=== PATIENT | female | born 1985 | race Caucasian/White ===

== ENCOUNTER 2018-02-16 08:38 | Emergency (ER) | payer OTHER ==
[2018-02-16 08:47] VITALS: TEMP 98.3
[2018-02-16] MEDS ORDERED: SODIUM CHLORIDE 0.9% 1,000 ML IV STA (09:00)
--- NOTE | 2018-02-16 09:04 | ED ---
Dizziness HPI - General Chief Complaint: Syncope Stated Complaint: Syncope 13 weeks Time Seen by Provider: 02/16/18 08:51 Source: patient, RN notes reviewed, old records reviewed Mode of arrival: ambulatory Limitations: no limitations - History of Present Illness Initial Comments: this patient is a 32-year-old female presents emergency department today after a syncopal episode. She reports that at 6:30 this morning she was in the shower and started to feel hot like she was about to faint. She states that she opened a window to get some air and then the next thing she remembers she was on the ground and her toe. Patient reports she is 13 weeks . Patient states that she had a history of single episode that she was younger in the past. She states that prior to this episode she had no chest pain or shortness of breath. She otherwise has been feeling well with this slightly nauseated. She states that when she fell she does have a small pain in the right posterior aspect of her head. She states that she was likely unconscious for 1-2 minutes or less. Patient relates that she had this time has no major complaints no abdominal pain or cramping. No chest pain or shortness of breath. She is complaining of a minor headache. She has been getting headaches throughout this . Patient's reports that she 's otherwise been acting normal and well since the fall. - Related Data Home Medications Medication Instructions Recorded Confirmed Ascorbic Acid [Vitamin C] 1,000 mg PO DAILY 02/16/18 02/16/18 Led-Poho-Ximbz Acid 1 cap PO DAILY 02/16/18 02/16/18 [-U Capsule (formulary)] Vitamin B Complex 1 cap PO DAILY 02/16/18 02/16/18 Allergies Allergy/AdvReac Type Severity Reaction Status Date / Time No Known Allergies Allergy Verified 02/16/18 09:16 Review of Systems ROS Statement: Those systems with pertinent positive or pertinent negative responses have been documented in the HPI. ROS Other: All systems not noted in ROS Statement are negative. Past Medical History Additional Past Medical History / Comment(s): syncopal episodes History of Any Multi-Drug Resistant Organisms: None Reported Past Surgical History: No Surgical Hx Reported Past Psychological History: No Psychological Hx Reported Smoking Status: Never smoker Past Alcohol Use History: None Reported Past Drug Use History: None Reported General Exam - General Exam Comments Initial Comments: 32-year-old female who is 13 weeks . Alert and oriented. No acute distress. Limitations: no limitations General appearance: alert, in no apparent distress Head exam: Present: atraumatic, normocephalic, normal inspection Eye exam: Present: normal appearance, PERRL, EOMI. Absent: scleral icterus, conjunctival injection, periorbital swelling ENT exam: Present: normal exam, normal oropharynx, mucous membranes moist Neck exam: Present: normal inspection. Absent: tenderness, meningismus, lymphadenopathy Respiratory exam: Present: normal lung sounds bilaterally. Absent: respiratory distress, wheezes, rales, rhonchi, stridor Cardiovascular Exam: Present: regular rate, normal rhythm, normal heart sounds. Absent: systolic murmur, diastolic murmur, rubs, gallop, clicks GI/Abdominal exam: Present: soft, normal bowel sounds. Absent: distended, tenderness, guarding, rebound, rigid Extremities exam: Present: normal inspection, full ROM, normal capillary refill. Absent: tenderness, pedal edema, joint swelling, calf tenderness Back exam: Present: normal inspection Neurological exam: Present: alert, oriented X3, CN II-XII intact Expanded Patient oriented to: Present: person, place, time Speech: Present: fluid speech Cranial nerves: EOM's Intact: Normal Cerebellar function: Finger to Nose: Normal Upper motor neuron: Pronator Drift: Normal Sensory exam: Upper Extremity Light Touch: Normal, Lower Extremity Light Touch: Normal Motor strength exam: RUE: 5, LUE: 5, RLE: 5, LLE: 5 Eye Response: (4) open spontaneously Motor Response: (6) obeys commands Verbal Response: (5) oriented [place] Total: 15 Psychiatric exam: Present: normal affect, normal mood Skin exam: Present: warm, dry, intact, normal color. Absent: rash Course Vital Signs 02/16/18 02/16/18 08:43 10:30 Temperature 98.3 F Pulse Rate 83 80 Respiratory 18 16 Rate Blood Pressure 131/72 131/59 O2 Sat by Pulse 100 99 Oximetry Medical Decision Making - Medical Decision Making 32-year-old female is 13 weeks presents after single episode. This time she reports a mild headache. She did hit her head on the phone was unconscious for approximately minute. I discussed doing a computed tomography scan she states to like to forego the computed tomography scan due to exposure of radiation. She is otherwise been alert and oriented and GCS of 15. No neurological deficits. This and will evaluate for possible cardiac syncope including cardiac workup. She has no chest pain or shortness breath or any other complaints at this time. Also ultrasound the baby. Ultrasound shows a viable 13 week with a heart rate of 135. Also a small subchorionic bleed 2.2 cm. She has no bleeding at this time. informed of this. Patient's labwork and EKG reviewed and normal. She did elect to forego the computed tomography scan. I discussed head injury instructions. Discussed measures remains hydrated. QUESTIONS answered and return parameters were discussed. She reports she feels well and states she would like to go home. - Lab Data Result diagrams: 02/16/18 09:30 02/16/18 09:30 Lab Results 02/16/18 02/16/18 02/16/18 Range/Units 09:08 09:30 09:30 WBC 8.8 (3.8-10.6) k/uL RBC 4.72 (3.80-5.40) m/uL Hgb 13.1 (11.4-16.0) gm/dL Hct 39.2 (34.0-46.0) % MCV 83.0 (80.0-100.0) fL MCH 27.7 (25.0-35.0) pg MCHC 33.3 (31.0-37.0) g/dL RDW 12.4 (11.5-15.5) % Plt Count 168 (150-450) k/uL Neutrophils % 82 % Lymphocytes % 12 % Monocytes % 4 % Eosinophils % 1 % Basophils % 0 % Neutrophils # 7.3 (1.3-7.7) k/uL Lymphocytes # 1.1 (1.0-4.8) k/uL Monocytes # 0.3 (0-1.0) k/uL Eosinophils # 0.0 (0-0.7) k/uL Basophils # 0.0 (0-0.2) k/uL PT (9.0-12.0) sec INR (<1.2) APTT (22.0-30.0) sec Sodium (137-145) mmol/L Potassium (3.5-5.1) mmol/L Chloride (98-107) mmol/L Carbon Dioxide (22-30) mmol/L Anion Gap mmol/L BUN (7-17) mg/dL Creatinine (0.52-1.04) mg/dL Est GFR (CKD-EPI)AfAm (>60 ml/min/1.73 sqM) Est GFR (CKD-EPI)NonAf (>60 ml/min/1.73 sqM) Glucose (74-99) mg/dL POC Glucose (mg/dL) 75 (75-99) mg/dL POC Glu Stave Machine Tender ID Calcium (8.4-10.2) mg/dL Total Bilirubin (0.2-1.3) mg/dL AST (14-36) U/L ALT (9-52) U/L Alkaline Phosphatase (38-126) U/L Total Creatine Kinase 31 (30-135) U/L CK-MB (CK-2) <0.2 (0.0-2.4) ng/mL CK-MB (CK-2) Rel Index Troponin I <0.012 (0.000-0.034) ng/mL Total Protein (6.3-8.2) g/dL Albumin (3.5-5.0) g/dL Urine Color Urine Appearance (Clear) Urine pH (5.0-8.0) Ur Specific [place] (1.001-1.035) Urine Protein (Negative) Urine Glucose (UA) (Negative) Urine Ketones (Negative) Urine Blood (Negative) Urine Nitrite (Negative) Urine Bilirubin (Negative) Urine Urobilinogen (<2.0) mg/dL Ur Leukocyte Esterase (Negative) Urine RBC (0-5) /hpf Urine WBC (0-5) /hpf Ur Squamous Epith Cells (0-4) /hpf Urine Mucus (None) /hpf 02/16/18 02/16/18 02/16/18 Range/Units 09:30 09:30 09:30 WBC (3.8-10.6) k/uL RBC (3.80-5.40) m/uL Hgb (11.4-16.0) gm/dL Hct (34.0-46.0) % MCV (80.0-100.0) fL MCH (25.0-35.0) pg MCHC (31.0-37.0) g/dL RDW (11.5-15.5) % Plt Count (150-450) k/uL Neutrophils % % Lymphocytes % % Monocytes % % Eosinophils % % Basophils % % Neutrophils # (1.3-7.7) k/uL Lymphocytes # (1.0-4.8) k/uL Monocytes # (0-1.0) k/uL Eosinophils # (0-0.7) k/uL Basophils # (0-0.2) k/uL PT 9.7 (9.0-12.0) sec INR 1.0 (<1.2) APTT 23.2 (22.0-30.0) sec Sodium 137 (137-145) mmol/L Potassium 3.9 (3.5-5.1) mmol/L Chloride 103 (98-107) mmol/L Carbon Dioxide 21 L (22-30) mmol/L Anion Gap 13 mmol/L BUN 10 (7-17) mg/dL Creatinine 0.48 L (0.52-1.04) mg/dL Est GFR (CKD-EPI)AfAm >90 (>60 ml/min/1.73 sqM) Est GFR (CKD-EPI)NonAf >90 (>60 ml/min/1.73 sqM) Glucose 78 (74-99) mg/dL POC Glucose (mg/dL) (75-99) mg/dL POC Glu Stave Machine Tender ID Calcium 9.4 (8.4-10.2) mg/dL Total Bilirubin 0.3 (0.2-1.3) mg/dL AST 14 (14-36) U/L ALT 18 (9-52) U/L Alkaline Phosphatase 65 (38-126) U/L Total Creatine Kinase (30-135) U/L CK-MB (CK-2) (0.0-2.4) ng/mL CK-MB (CK-2) Rel Index Troponin I (0.000-0.034) ng/mL Total Protein 6.7 (6.3-8.2) g/dL Albumin 3.9 (3.5-5.0) g/dL Urine Color Yellow Urine Appearance Cloudy H (Clear) Urine pH 7.5 (5.0-8.0) Ur Specific [place] 1.023 (1.001-1.035) Urine Protein Trace H (Negative) Urine Glucose (UA) Negative (Negative) Urine Ketones 1+ H (Negative) Urine Blood Negative (Negative) Urine Nitrite Negative (Negative) Urine Bilirubin Negative (Negative) Urine Urobilinogen <2.0 (<2.0) mg/dL Ur Leukocyte Esterase Negative (Negative) Urine RBC <1 (0-5) /hpf Urine WBC 2 (0-5) /hpf Ur Squamous Epith Cells 2 (0-4) /hpf Urine Mucus Rare H (None) /hpf 02/16/18 10:06 EKG shows normal sinus rhythm. Possible left atrial enlargement. Borderline EKG noted. Ventricular rate of 85 beats were minute. KS interval is 144 milliseconds. QRS ration 82 ms. QT QTC 370/440 ms. No evidence of ST elevation or T-wave inversion. No speech or ventricular arrhythmias. - Radiology Data Radiology results: report reviewed Ultrasound shows viable IUP measuring 13 weeks. Heart rate of 155. Estimated delivery date of 08/24/2028. Findings are suggestive of a 2.2 subchorionic hemorrhage. Disposition Clinical Impression: Syncope, 13 weeks gestation of Disposition: HOME SELF-CARE Condition: Good Instructions: Syncope (ED) Additional Instructions: Make sure the remaining hydrated. Small frequent next. Follow-up with primary care provider. Return to the emergency department if any alarming signs or symptoms occur. Referrals: Jae Bauman MD [Primary Care Provider] - 1-2 days Time of Disposition: 11:18
[2018-02-16 09:32] LABS: Glucose,Whole Blood 75 mg/dL (75-99)
[2018-02-16 09:49] LABS: Basophils % (A) 0 %; Eosinophils % (A) 1 %; HCT 39.2 % (34.0-46.0); HGB 13.1 gm/dL (11.4-16.0); Lymphocytes # (A) 1.1 k/uL (1.0-4.8); Lymphocytes % (A) 12 %; MCH 27.7 pg (25.0-35.0); MCHC 33.3 g/dL (31.0-37.0); Mean Platelet Volume 8.4; Monocytes # (A) 0.3 k/uL (0-1.0); Monocytes % (A) 4 %; Neutrophils # (A) 7.3 k/uL (1.3-7.7); Neutrophils % (A) 82 %; Platelet Count 168 k/uL (150-450); RBC 4.72 m/uL (3.80-5.40); RDW 12.4 % (11.5-15.5); WBC 8.8 k/uL (3.8-10.6)
[2018-02-16 09:52] LABS: Appearance,Urine Cloudy (Clear); Bilirubin,Urine Negative (Negative); Blood,Urine Negative (Negative); Color,Urine Yellow; Glucose,Urine (UA) Negative (Negative); Ketones,Urine 1+ (Negative); Leukocyte Esterase,Urine Negative (Negative); Mucus,Urine Rare /hpf; Nitrite,Urine Negative (Negative); PH, Urine 7.5 (5.0-8.0); Protein,Urine Trace (Negative); RBC,Urine <1 /hpf (0-5); Specific Gravity,Urine 1.023 (1.001-1.035); Squamous Epithelial Cell,Urine 2 /hpf (0-4); Urobilinogen,Urine <2.0 mg/dL (<2.0); WBC,Urine 2 /hpf (0-5)
[2018-02-16 09:58] LABS: Partial Thromboplastin Time 23.2 sec (22.0-30.0); Prothrombin Time 9.7 sec (9.0-12.0)
[2018-02-16 10:02] LABS: ALT 18 U/L (9-52); AST 14 U/L (14-36); Albumin 3.9 g/dL (3.5-5.0); Alkaline Phosphatase 65 U/L (38-126); Anion Gap 13 mmol/L; Blood Urea Nitrogen 10 mg/dL (7-17); Calcium 9.4 mg/dL (8.4-10.2); Carbon Dioxide 21 mmol/L (22-30); Chloride 103 mmol/L (98-107); Glucose 78 mg/dL (74-99); Sodium 137 mmol/L (137-145); Total Bilirubin 0.3 mg/dL (0.2-1.3); Total Protein 6.7 g/dL (6.3-8.2)
[2018-02-16] MEDS ORDERED: ACETAMINOPHEN TAB 500 MG TAB PO STA (10:07)
[2018-02-16 10:12] LABS: Creatine Kinase 31 U/L (30-135)
[2018-02-16 10:14] LABS: Potassium 3.9 mmol/L (3.5-5.1)
--- NOTE | 2018-02-16 10:19 | US ---
EXAMINATION TYPE: Transabdominal DATE OF EXAM: 02/16/18 COMPARISON: 10/21/2016 CLINICAL HISTORY: Pain. Syncope, patient fell in shower today and hit her head, patient states no pel jeanmarie pain and bleeding, 2, para 1. EXAM PERFORMED: Transabdominal (TA) EXAM MEASUREMENTS: GESTATIONAL AGE / DATING Physician Established: (12 weeks/6 days) EDC: 08/25/2018 Dates by LMP: (12 weeks/6 days) EDC: 08/25/2018 Dates by First Scan: No previous here Dates by Current Scan for: (13 weeks/0 days) EDC: 08/24/2018 MATERNAL ANATOMY Uterus: 15.4 x 6.0 x 8.7cm, anteverted Right Ovary: 3.5 x 1.5 x 2.5cm Left Ovary: 4.2 x 2.2 x 3.0cm Post CDS / Adnexa: wnl Presence of free fluid: no Presence of corpus luteal cyst: left ovary: 2.2 x 1.7 x 1.7cm complex area, possible corpus luteum Presence of subchorionic bleed: 2.0 x 1.2 x 2.2cm hypoechoic area inferior to gestational sac, possib le bleed GESTATION / SURVEY CRL: 6.7cm (13 weeks/0 days) Yolk Sac (normal less than 6mm): not seen at this time Heart Rate: 155 bpm Rhythm: Normal IUP: Viable IUP Nuchal Translucency 10-14wks (normal less than 3mm): 1.8mm Date of LMP: 11/18/2017 Beta HcG (if available): Not available at time of exam Viable single IUP measuring 13 weeks 0 days with a heart rate of 155bpm and an estimated delivery silverio e of 08/24/2018, 2.2cm hypoechoic area inferior to gestational sac, suggestive of subchorionic hemorr montez. IMPRESSION: Viable single IUP measuring 13 weeks 0 days with a heart rate of 155bpm and an estimated delivery silverio e of 08/24/2018. Findings are suggestive of a 2.2 cm subchorionic hemorrhage.
[2018-02-16 10:26] LABS: Creatine Kinase MB <0.2 ng/mL (0.0-2.4); Troponin I <0.012 ng/mL (0.000-0.034)
[2018-02-16 11:30] VITALS: BP 116/66; PULSE 96; RESP 20
== END 2018-02-16 11:30 | disposition home or self-care (01) ==
LOC: EC 08:38
DX: O99.89 Other specified diseases and conditions complicating pregnancy, childbirth and the puerperium (principal); R51 Headache; R42 Dizziness and giddiness; O20.8 Other hemorrhage in early pregnancy; R11.0 Nausea; Z3A.13 13 weeks gestation of pregnancy; Z79.899 Other long term (current) drug therapy; W18.00XA Striking against unspecified object with subsequent fall, initial encounter; Y93.E1 Activity, personal bathing and showering
CPT/HCPCS: 36415; 76801; 76813; 80053; 81001; 82550; 82553; 84484; 85025; 85610; 85730; 93005; 96360; 99285

== ENCOUNTER 2018-03-10 21:42 | Emergency (ER) | payer OTHER ==
[2018-03-10] MEDS ORDERED: SODIUM CHLORIDE 0.9% 1,000 ML IV STA ×2 (22:31)
--- NOTE | 2018-03-10 22:32 | ED ---
General Adult HPI - General Chief complaint: Nausea/Vomiting/Diarrhea Stated complaint: vomiting/16 wks preg Time Seen by Provider: 03/10/18 22:17 Source: patient, RN notes reviewed Mode of arrival: ambulatory Limitations: no limitations - History of Present Illness Initial comments: Patient 32-year-old female who is G2, P1, 16 weeks by ultrasound, presenting with nausea vomiting that started yesterday afternoon. Patient states that she's had increased nausea vomiting no sign of blood. Unable to keep anything down. Patient states feeling a little bit better at this time is still nauseous. Does admit some cramping type abdominal pain left side. Denies any vaginal bleeding or discharge. Denies any other complaints or symptoms. Patient denies any recent fever, chills, shortness of breath, chest pain, back pain, numbness or tingling, dysuria or hematuria, constipation or diarrhea, headaches or visual changes, or any other complaints. - Related Data Home Medications Medication Instructions Recorded Confirmed Ascorbic Acid [Vitamin C] 1,000 mg PO DAILY 02/16/18 03/10/18 Ngl-Ybqw-Afzwp Acid 1 cap PO DAILY 02/16/18 03/10/18 [-U Capsule (formulary)] Vitamin B Complex 1 cap PO DAILY 02/16/18 03/10/18 Allergies Allergy/AdvReac Type Severity Reaction Status Date / Time No Known Allergies Allergy Verified 03/10/18 22:22 Review of Systems ROS Statement: Those systems with pertinent positive or pertinent negative responses have been documented in the HPI. ROS Other: All systems not noted in ROS Statement are negative. Past Medical History Additional Past Medical History / Comment(s): syncopal episodes History of Any Multi-Drug Resistant Organisms: None Reported Past Surgical History: No Surgical Hx Reported Past Psychological History: No Psychological Hx Reported Smoking Status: Never smoker Past Alcohol Use History: None Reported Past Drug Use History: None Reported General Exam - General Exam Comments Initial Comments: General: The patient is awake and alert, in no distress, and does not appear acutely ill. Eye: Pupils are equal, round and reactive to light, extra-ocular movements are intact. No nystagmus. There is normal conjunctiva bilaterally. No signs of icterus. Ears, nose, mouth and throat: There are moist mucous membranes and no oral lesions. Neck: The neck is supple, there is no tenderness or JVD. Cardiovascular: There is a regular rate and rhythm. No murmur, rub or gallop is appreciated. Respiratory: Lungs are clear to auscultation, respirations are non-labored, breath sounds are equal. No wheezes, stridor, rales, or rhonchi. Gastrointestinal: Soft, non-distended, non-tender abdomen without masses or organomegaly noted. There is no rebound or guarding present. No CVA tenderness. Musculoskeletal: Normal ROM, no tenderness. Strength 5/5. Sensation intact. Pulses equal bilaterally 2+. Neurological: A&O x 3. CN II-XII intact, There are no obvious motor or sensory deficits. Coordination appears grossly intact. Speech is normal. Skin: Skin is warm and dry and no rashes or lesions are noted. Psychiatric: Cooperative, appropriate mood & affect, normal judgment. Limitations: no limitations Course Vital Signs 03/10/18 03/10/18 22:02 23:45 Temperature 97.8 F 97.9 F Pulse Rate 62 81 Respiratory 20 18 Rate Blood Pressure 120/72 112/62 O2 Sat by Pulse 98 96 Oximetry Medical Decision Making - Medical Decision Making Patient reexamined at this time shows no signs of distress. Patient no nausea vomiting here the emergency room is feeling better. Patient was offered nausea medication along with Tylenol for abdominal cramping. She has declined. Patient 16 weeks by ultrasound patient denies any bleeding or discharge. At this time patient's doing well improved will be discharged home advised follow-up the AUDITING CONTROL CLERK over the next 2 days. - Lab Data Result diagrams: 03/10/18 22:19 03/10/18 22:19 Lab Results 03/10/18 03/10/18 03/10/18 Range/Units 22:19 22:19 23:15 WBC 9.3 (3.8-10.6) k/uL RBC 4.65 (3.80-5.40) m/uL Hgb 12.7 (11.4-16.0) gm/dL Hct 37.7 (34.0-46.0) % MCV 81.2 (80.0-100.0) fL MCH 27.3 (25.0-35.0) pg MCHC 33.7 (31.0-37.0) g/dL RDW 12.9 (11.5-15.5) % Plt Count 194 (150-450) k/uL Neutrophils % 78 % Lymphocytes % 15 % Monocytes % 5 % Eosinophils % 2 % Basophils % 0 % Neutrophils # 7.2 (1.3-7.7) k/uL Lymphocytes # 1.4 (1.0-4.8) k/uL Monocytes # 0.5 (0-1.0) k/uL Eosinophils # 0.1 (0-0.7) k/uL Basophils # 0.0 (0-0.2) k/uL Sodium 137 (137-145) mmol/L Potassium 3.9 (3.5-5.1) mmol/L Chloride 105 (98-107) mmol/L Carbon Dioxide 21 L (22-30) mmol/L Anion Gap 11 mmol/L BUN 8 (7-17) mg/dL Creatinine 0.50 L (0.52-1.04) mg/dL Est GFR (CKD-EPI)AfAm >90 (>60 ml/min/1.73 sqM) Est GFR (CKD-EPI)NonAf >90 (>60 ml/min/1.73 sqM) Glucose 86 (74-99) mg/dL Calcium 9.4 (8.4-10.2) mg/dL Total Bilirubin 0.2 (0.2-1.3) mg/dL AST 22 (14-36) U/L ALT 26 (9-52) U/L Alkaline Phosphatase 77 (38-126) U/L Total Protein 6.3 (6.3-8.2) g/dL Albumin 3.7 (3.5-5.0) g/dL Urine Color Yellow Urine Appearance Clear (Clear) Urine pH 5.5 (5.0-8.0) Ur Specific [place] 1.014 (1.001-1.035) Urine Protein Negative (Negative) Urine Glucose (UA) Negative (Negative) Urine Ketones 2+ H (Negative) Urine Blood Negative (Negative) Urine Nitrite Negative (Negative) Urine Bilirubin Negative (Negative) Urine Urobilinogen <2.0 (<2.0) mg/dL Ur Leukocyte Esterase Negative (Negative) Disposition Clinical Impression: Hyperemesis gravidarum Disposition: HOME SELF-CARE Condition: Good Instructions: Hyperemesis Gravidarum (ED) Additional Instructions: Please use medication as discussed. Please follow-up with AUDITING CONTROL CLERK in the next 1- 2 days. Please return to emergency room if the symptoms increase or worsen or for any other concerns. Is patient prescribed a controlled substance at d/c from ED?: No Referrals: Jae Bauman MD [Primary Care Provider] - 1-2 days Time of Disposition: 00:03
[2018-03-10 22:40] LABS: Basophils % (A) 0 %; Eosinophils # (A) 0.1 k/uL (0-0.7); Eosinophils % (A) 2 %; HCT 37.7 % (34.0-46.0); HGB 12.7 gm/dL (11.4-16.0); Lymphocytes # (A) 1.4 k/uL (1.0-4.8); Lymphocytes % (A) 15 %; MCH 27.3 pg (25.0-35.0); MCHC 33.7 g/dL (31.0-37.0); MCV 81.2 fL (80.0-100.0); Mean Platelet Volume 8.8; Monocytes # (A) 0.5 k/uL (0-1.0); Monocytes % (A) 5 %; Neutrophils # (A) 7.2 k/uL (1.3-7.7); Neutrophils % (A) 78 %; Platelet Count 194 k/uL (150-450); RBC 4.65 m/uL (3.80-5.40); RDW 12.9 % (11.5-15.5); WBC 9.3 k/uL (3.8-10.6)
[2018-03-10 22:50] LABS: ALT 26 U/L (9-52); AST 22 U/L (14-36); Albumin 3.7 g/dL (3.5-5.0); Alkaline Phosphatase 77 U/L (38-126); Anion Gap 11 mmol/L; Blood Urea Nitrogen 8 mg/dL (7-17); Calcium 9.4 mg/dL (8.4-10.2); Carbon Dioxide 21 mmol/L (22-30); Chloride 105 mmol/L (98-107); Glucose 86 mg/dL (74-99); Potassium 3.9 mmol/L (3.5-5.1); Sodium 137 mmol/L (137-145); Total Bilirubin 0.2 mg/dL (0.2-1.3); Total Protein 6.3 g/dL (6.3-8.2)
[2018-03-10 23:27] LABS: Appearance,Urine Clear (Clear); Bilirubin,Urine Negative (Negative); Blood,Urine Negative (Negative); Color,Urine Yellow; Glucose,Urine (UA) Negative (Negative); Ketones,Urine 2+ (Negative); Leukocyte Esterase,Urine Negative (Negative); Nitrite,Urine Negative (Negative); PH, Urine 5.5 (5.0-8.0); Protein,Urine Negative (Negative); Specific Gravity,Urine 1.014 (1.001-1.035); Urobilinogen,Urine <2.0 mg/dL (<2.0)
[2018-03-10 23:45] VITALS: BP 112/62; PULSE 81; RESP 18; TEMP 97.9
== END 2018-03-11 00:09 | disposition home or self-care (01) ==
LOC: EC 21:42
DX: O21.0 Mild hyperemesis gravidarum (principal); O26.892 Other specified pregnancy related conditions, second trimester; R10.9 Unspecified abdominal pain; Z3A.16 16 weeks gestation of pregnancy; Z79.899 Other long term (current) drug therapy
CPT/HCPCS: 36415; 80053; 81003; 85025; 96360; 99284

== ENCOUNTER → 2019-04-28 | Outpatient (CLI) | payer OTHER ==
--- NOTE | 2019-04-28 14:01 | US ---
EXAMINATION TYPE: US OB<=14wk fetus twins/travag DATE OF EXAM: 04/28/2019 COMPARISON: NONE CLINICAL HISTORY: Dates and viability-twin gestation. EXAM PERFORMED: Transvaginal (TV) and Transabdominal (TA) EXAM MEASUREMENTS: GESTATIONAL AGE / DATING Physician Established: Not yet established Dates by LMP: (7 weeks/2 days) EDC: 12/13/2019 Dates by First Scan: No previous this is first scan Dates by Current Scan for Baby A: (6 weeks/0 days) EDC: 12/22/2019 Dates by Current Scan for Baby B: (6 weeks/0 days) EDC: 12/22/2019 MATERNAL ANATOMY Uterus: 9.3 x 4.0 x 4.4 cm Right Ovary: 3.8 x 3.0 x 2.1 cm Left Ovary: 2.5 x 1.6 x 1.8 cm Post CDS / Adnexa: wnl Presence of free fluid: No Presence of corpus luteal cyst: Yes, right ovary measuring 2.1 x 1.9 x 2.1 cm Presence of subchorionic bleed: Yes, measuring 1.8 x 0.8 x 1.7 cm Presence of two separate gestational sacs: Yes GESTATION / SURVEY TWIN A CRL: 0.32 cm (6wks/0days) Yolk Sac (normal less than 6mm): 3mm Heart Rate: 100 bpm Rhythm: Normal IUP: Viable IUP TWIN B CRL: 0.33 cm (6wks/0days) Yolk Sac (normal less than 6mm): 2 mm Heart Rate: 105 bpm Rhythm: Normal IUP: Viable IUP Date of LMP: 03/08/2019 Beta HcG (if available): Not available at this time Viable twin IUP with an JW of 12/22/2019. Probable subchorionic bleed visualized measuring 1.8 x 0.8 x 1.7 cm. IMPRESSION: Viable twin IUP with an JW of 12/22/2019. Probable subchorionic bleed visualized measuring 1.8 x 0.8 x 1.7 cm.
== END | disposition home or self-care (01) ==
LOC: RADUSWWP 12:59
PROVIDERS: ATTEND Obstetrics & Gynecology
DX: O30.001 Twin pregnancy, unspecified number of placenta and unspecified number of amniotic sacs, first trimester (principal); Z3A.01 Less than 8 weeks gestation of pregnancy
CPT/HCPCS: 76801; 76802; 76817

== ENCOUNTER → 2021-03-21 | Outpatient (CLI) | payer OTHER ==
[2021-03-21 23:39] LABS: Basophils # (A) 0.02 X 10*3/uL (0.00-0.10); Basophils % (A) 0.3 %; Eosinophils # (A) 0.07 X 10*3/uL (0.04-0.35); HCT 39.2 % (37.2-46.3); HGB 12.3 g/dL (12.0-15.0); Lymphocytes % (A) 16.6 %; MCH 26.3 pg (27.0-32.0); MCHC 31.4 g/dL (32.0-37.0); MCV 83.9 fL (80.0-97.0); Mean Platelet Volume 12.1 fL (9.5-12.2); Monocytes # (A) 0.41 X 10*3/uL (0.20-1.00); Monocytes % (A) 5.7 %; Neutrophils % (A) 76.1 %; Platelet Count 192 X 10*3/uL (140-440); RBC 4.67 X 10*6/uL (4.10-5.20); RDW 14.4 % (11.5-14.5); WBC 7.22 X 10*3/uL (4.50-10.00)
[2021-03-22 03:39] LABS: ALT 15 U/L (8-44); AST 17 U/L (13-35); African American GFR (CKD) 137.8 (60.0-200.0); Albumin/Globulin Ratio 1.81 (1.60-3.17); Alkaline Phosphatase 89 U/L (41-126); BUN/Creat Ratio 16.67 Ratio (12.00-20.00); Calcium 8.7 mg/dL (8.7-10.3); Carbon Dioxide 23.3 mmol/L (21.6-31.8); Chloride 108 mmol/L (96-109); Globulin 2.1 g/dL (1.6-3.3); Glucose 78 mg/dL (70-110); Non-African American GFR(CKD) 118.9 (60.0-200.0); Potassium 4.5 mmol/L (3.5-5.5); Sodium 138 mmol/L (135-145); Total Bilirubin 0.5 mg/dL (0.2-1.2); Total Protein 5.9 g/dL (6.2-8.2)
== END | disposition home or self-care (01) ==
LOC: LABWHC1 09:03
PROVIDERS: ATTEND Internal Medicine Endocrinology, Diabetes & Metabolism
DX: E05.00 Thyrotoxicosis with diffuse goiter without thyrotoxic crisis or storm (principal)
CPT/HCPCS: 36415; 80053; 84439; 84443; 84481; 85025

== ENCOUNTER → 2021-03-26 | Outpatient (CLI) | payer OTHER ==
--- NOTE | 2021-03-27 09:32 | US ---
EXAMINATION TYPE: US thyroid st tissue head/neck DATE OF EXAM: 03/26/2021 COMPARISON: NONE CLINICAL HISTORY: E05.90 Hyperthyroidism. Patient stated is 23 weeks GLAND SIZE: Right Lobe: 4.7 x 2.0 x 1.8 cm Overall Parenchyma: homogenous Left Lobe: 4.7 x 1.9 x 1.4 cm Overall Parenchyma: homogeneous Isthmus Thickness: 0.3 cm NODULES RIGHT: # of nodules measured on right: 3 largest of multiple are reported 1. 1.2 X 1.0 x 0.6 cm, upper pole, mixed cystic and solid, hypoechoic nodule, which is wider than t all, with smooth margins, without echogenic foci. 2. 1.2 X 1.0 x 0.7 cm, upper pole, mixed cystic and solid, hypoechoic nodule, which is wider than t all, with smooth margins, without echogenic foci. 3. 1.4 X 1.3 x 0.5 cm, upper pole, mixed cystic and solid, hypoechoic nodule, which is wider than t all, with smooth margins, with echogenic foci. LEFT: # of nodules measured on left: 3 largest of multiple are reported 1. 0.6 X 0.8 x 0.4 cm, mid pole, cystic or almost completely cystic, hypoechoic nodule, which is wi bairon than tall, with smooth margins, with echogenic foci. 2. 1.0 X 0.9 x 0.6 cm, mid pole, mixed cystic and solid, hypoechoic nodule, which is wider than ta ll, with smooth margins, with echogenic foci. 3. 1.0 X 0.7 x 0.4 cm, lower pole labeled #4, cystic or almost completely cystic, anechoic nodule, which is wider than tall, with ill-defined margins, without echogenic foci. ISTHMUS: # of nodules measured in the isthmus: 1 largest of couple 1. 0.8 X 0.8 x 0.5 cm cystic, anechoic nodule, which is wider than tall, with lobulated or irregula r margins, without echogenic foci. Bilateral neck scanned: superior to left thyroid a lymph node is seen = 2.6 x 1.9 x 0.6cm . IMPRESSION: Multinodular thyroid gland. Multiple mixed cystic and solid nodules are seen, one with echogenic foci in the left lobe. This is suggestive of a BI-RADS 4 nodule. Continued sonographic follow-up is recom mended. 2017 ACR TI-RADS LEVEL: 4 *Highest TI-RADS level nodule reported
== END | disposition home or self-care (01) ==
LOC: RADUSWWP 08:59
PROVIDERS: ATTEND Family Medicine
DX: E04.2 Nontoxic multinodular goiter (principal); E05.90 Thyrotoxicosis, unspecified without thyrotoxic crisis or storm; Z3A.23 23 weeks gestation of pregnancy
CPT/HCPCS: 76536

== ENCOUNTER → 2022-02-27 | Outpatient (CLI) | payer OTHER | END | disposition home or self-care (01) | LOC: LABWHC1 10:47 | PROVIDERS: ATTEND Surgery | DX: E04.2 Nontoxic multinodular goiter (principal) | CPT/HCPCS: 36415; 84436; 84439; 84443; 84480 ==

== ENCOUNTER → 2023-10-03 | Outpatient (CLI) | payer OTHER ==
[2023-10-03 16:19] LABS: Basophils # (A) 0.05 X 10*3/uL (0.00-0.10); Basophils % (A) 0.7 %; Eosinophils # (A) 0.13 X 10*3/uL (0.04-0.35); Eosinophils % (A) 1.9 %; HGB 13.9 g/dL (12.0-15.0); Lymphocytes % (A) 24.9 %; MCH 27.5 pg (27.0-32.0); MCHC 31.6 g/dL (32.0-37.0); Mean Platelet Volume 12.2 FL (9.5-12.2); Monocytes % (A) 7.3 %; NRBC Per 100 WBC 0 X 10*3/uL (0.00-0.01); Neutrophils # (A) 4.42 X 10*3/uL (1.80-7.70); Neutrophils % (A) 64.9 %; Platelet Count 186 X 10*3/uL (140-440); RBC 5.06 X 10*6/uL (4.10-5.20); RDW 12.7 % (11.5-14.5); WBC 6.82 X 10*3/uL (4.50-10.00)
[2023-10-03 16:27] LABS: Thyroid Peroxidase Antibodies <9.0 U/mL (0.0-33.0)
[2023-10-03 16:41] LABS: Chol/HDL Ratio 2.75 Ratio; Iron 63 UG/DL (50-170)
[2023-10-03 16:42] LABS: % Iron Saturation 16.07 (12.00-45.00); ALT 25 U/L (8-44); AST 22 U/L (13-35); Albumin/Globulin Ratio 2.11 Ratio (1.60-3.17); Alkaline Phosphatase 63 U/L (41-126); BUN/Creat Ratio 18.88 Ratio (12.00-20.00); Blood Urea Nitrogen 15.1 mg/dL (9.0-27.0); Calcium 9.2 mg/dL (8.7-10.3); Carbon Dioxide 22.8 mmol/L (21.6-31.8); Chloride 107 mmol/L (96-109); Ferritin 54.5 ng/mL (10.0-291.0); Globulin 1.9 g/dL (1.6-3.3); Glucose 84 mg/dL (70-110); LDL Cholesterol,Calculated 92.3 mg/dL (0.0-131.0); Magnesium 2.1 mg/dL (1.5-2.4); Potassium 4.5 mmol/L (3.5-5.5); Sodium 141 mmol/L (135-145); T4, Free (Free Thyroxine) 1.14 ng/dL (0.80-1.80); Total Bilirubin 0.3 mg/dL (0.3-1.2); Total Iron Binding Capacity 392 UG/DL (228-460); Total Protein 5.9 g/dL (6.2-8.2); VLDL Calculation 14.54 mg/dL (5.00-40.00)
== END | disposition home or self-care (01) ==
LOC: LABWHC1 08:54
PROVIDERS: ATTEND Family Medicine
DX: Z00.00 Encounter for general adult medical examination without abnormal findings (principal); E05.90 Thyrotoxicosis, unspecified without thyrotoxic crisis or storm; R53.83 Other fatigue
CPT/HCPCS: 36415; 80053; 80061; 82306; 82607; 82728; 82746; 83036; 83540; 83550; 83735; 84439; 84443; 84481; 85025; 86376; 86800

== ENCOUNTER → 2023-10-22 | Outpatient (CLI) | payer OTHER ==
--- NOTE | 2023-10-23 08:31 | MM ---
Reason for Exam: Screening (asymptomatic). Baseline mammogram. Patient History: Menarche at age 16. First Full-Term at age 31. Late child-bearing (after 31). Patient has history of breast feeding. Patient used Hormonal Contraceptives for 12 years. Last menstrual period: 10/02/2023 Risk Values: Marti 5 year model risk: 0.5%. NCI Lifetime model risk: 12.6%. Prior Study Comparison: Patient's first Mammogram. Tissue Density: The breast tissue is heterogeneously dense. This may lower the sensitivity of mammography. Findings: Analyzed By CAD. There is no suspicious group of microcalcifications or new suspicious mass in either breast. Overall Assessment: Benign, BI-RAD 2 Management: Screening Mammogram of both breasts in 1 year. . Patient should continue monthly self-breast exams. A clinical breast exam by your physician is recommended on an annual basis. This exam should not preclude additional follow-up of suspicious palpable abnormalities. Note on Marti scores and lifetime risk: 1. A Marti score greater than 3% is considered moderate risk. If this is the case, consider specialist referral to assess eligibility for a risk reducing agent. 2. If overall lifetime risk for the development of breast cancer is 20% or higher, the patient may qualify for future screening with alternating mammogram and breast MRI. Electronically signed and approved by: Richardson Mendez M.D. Radiologis
== END | disposition home or self-care (01) ==
LOC: RADMAMWWP 15:16
PROVIDERS: ATTEND Family Medicine
DX: Z12.31 Encounter for screening mammogram for malignant neoplasm of breast (principal); Z92.0 Personal history of contraception
CPT/HCPCS: 77063; 77067